=== PATIENT | male | born 1975 | race American Indian/Alaskan Native ===

== ENCOUNTER 2018-04-27 17:20 | Emergency (ER) | payer SELFPAY ==
[2018-04-27 17:32] VITALS: BP 137/78
[2018-04-27 18:28] LABS: Bilirubin,Urine NEG (Negative); Blood,Urine NEG (Negative); Color,Urine Yellow (Yellow); Protein,Urine <15 mg/dL mg/dL (Negative); RBC,Urine < 1.0 /HPF (0.0-6.0); Urobilinogen,Urine < 2.0 mg/dL (<2.0); WBC,Urine < 1.0 /HPF (0.0-6.0)
== END 2018-04-27 20:45 | disposition left against medical advice (07) ==
LOC: ED 17:20
DX: R10.9 Unspecified abdominal pain (principal); R11.2 Nausea with vomiting, unspecified; F17.200 Nicotine dependence, unspecified, uncomplicated; F12.90 Cannabis use, unspecified, uncomplicated; Z88.0 Allergy status to penicillin; Z53.21 Procedure and treatment not carried out due to patient leaving prior to being seen by health care provider
CPT/HCPCS: 81001

== ENCOUNTER 2021-06-04 15:38 | Emergency (ER) | payer OTHER ==
--- NOTE | 2021-06-04 15:48 | Emergency Department Report ---
Blank Doc - Documentation Documentation: 45-year-old male that presents with chest pain and SOB. 1- This is a initial triage assessment/medical screening only. Full assessment and work-up will be completed once the patient is in proper hospital gown, ED bed and in a private room setting. This initial assessment/diagnostic orders/clinical plan/ treatment(s) is/are subject to change based on pt's health status, clinical progression and re-assessment by fellow clinical providers in the ED. Further treatment and workup at subsequent clinical providers discretion. Patient/guardians urged not to elope from ED as their condition may be serious if not clinically assessed and managed. 2-cardiac workup
[2021-06-04 15:51] VITALS: BP 113/78
--- NOTE | 2021-06-04 16:13 | XRay Report ---
CHEST 2 VIEWS INDICATION: Chest Pain. COMPARISON: None. FINDINGS: Support devices: None. Heart: Within normal limits. Lungs/Pleura: No acute air space or interstitial disease. No significant pleural effusion. IMPRESSION: No acute findings. Signer Name: Minh Rouse MD Signed: 06/04/2021 4:09 PM Workstation Name: [email or web address]
[2021-06-04 16:32] LABS: Basophils # (Auto) 0.1 K/mm3 (0.0-0.1); Basophils % (Auto) 0.6 % (0.0-1.8); Eosinophils % (Auto) 0.3 % (0.0-4.3); Hemoglobin 16.5 gm/dl (11.8-15.2); Lymphocytes # (Auto) 3.1 K/mm3 (1.2-5.4); Lymphocytes % (Auto) 22.6 % (13.4-35.0); Mean Corpuscular HGB Conc 34 % (32-34); Mean Corpuscular Volume 96 fl (84-94); Monocytes # (Auto) 1.1 K/mm3 (0.0-0.8); Monocytes % (Auto) 8.3 % (0.0-7.3); Platelet Count 203 K/mm3 (140-440); Red Blood Count 5.11 M/mm3 (3.65-5.03); Red Cell Distribution Width 14.7 % (13.2-15.2)
[2021-06-04 16:44] LABS: INR 0.9 (0.87-1.13)
[2021-06-04 16:45] LABS: Partial Thromboplastin Time 29.7 Sec. (24.2-36.6)
[2021-06-04 16:54] LABS: Alanine Aminotransferase 16 units/L (7-56); Albumin 4.4 g/dL (3.9-5); BUN/Creatinine Ratio 12; Blood Urea Nitrogen 12 mg/dL (9-20); Hemolysis Index 10
[2021-06-04] MEDS ORDERED: PANTOPRAZOLE 40 MG TAB PO ONE (19:09)
[2021-06-04] MEDS ORDERED: ACETAMINOPHEN 325 MG TAB PO ONE (19:09)
[2021-06-04] MEDS ORDERED: SUCRALFATE 1 GM/10 ML ORAL LIQD PO ONE (19:09)
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
--- NOTE | 2021-06-06 10:27 | Electrocardiograph Report ---
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
== END 2021-06-04 20:39 | disposition home or self-care (01) ==
LOC: ED 15:38
DX: R10.13 Epigastric pain (principal)
CPT/HCPCS: 36415; 71046; 80053; 84484; 85025; 85610; 85730; 93005; 99284